=== PATIENT | female | born 1940 | race Hispanic/Latino ===

== ENCOUNTER → 2018-01-01 | Outpatient (CLI) | payer MEDICARE ==
[~2018-01-01] MED LIST: ADV250 IH; ALBU8.5H8 IH; ALPR1TAB2 PO; AMMO385C4 TP; ATOR40TA69 PO; ISOS20TA7 PO; LEVA1.2525 IH; LOSA25TA2 PO; METO10TA3 PO; MONT10TA24 PO; NITRS4 SL; OMEP40CA37 PO; RANO500T3 PO; SERT50TA12 PO; SITA100T12 PO; TERB250T51 PO; TIOT4MIS5 IH; TRAM50TA4 PO; TRAV2.5D OD; XUD IH
[2018-01-01 09:30] LABS: CREATININE 0.6 mg/dL (0.5-1.5)
== END | disposition home or self-care (01) ==
LOC: LAB 08:43
PROVIDERS: ATTEND Internal Medicine
DX: J98.4 Other disorders of lung (principal); R91.1 Solitary pulmonary nodule
CPT/HCPCS: 36415; 82565; 84520

== ENCOUNTER → 2018-01-02 | Outpatient (CLI) | payer MEDICARE ==
[~2018-01-02] MED LIST changes: +ISOVUE-370 50ML VIAL IV ONE
== END | disposition home or self-care (01) ==
LOC: RAH 12:08
PROVIDERS: ATTEND Internal Medicine
DX: J98.4 Other disorders of lung (principal)
CPT/HCPCS: 71260; Q9967

== ENCOUNTER 2018-05-19 18:28 | Emergency (ER) | payer MEDICARE ==
[~2018-05-19 18:28] MED LIST changes: -ISOVUE-370 50ML VIAL IV ONE
[2018-05-19 19:14] LABS: BASOPHILS % (AUTO) 0.3 % (0.0-5.0); HEMATOCRIT 42.8 % (36-48); LYMPHOCYTES % (AUTO) 35.1 % (21.0-51.0); MEAN CORPUSCULAR HEMOGLOBIN 29.3 pg (27.0-33.0); MEAN CORPUSCULAR HGB CONC 33.2 g/dL (32.0-36.0); MEAN CORPUSCULAR VOLUME 88.4 fL (79-99); MONOCYTES % (AUTO) 7.4 % (3.0-13.0); NEUTROPHILS % (AUTO) 55.2 % (40.0-77.0); NUCLEATED RED BLOOD CELLS 0.1 % (0.0-0.19); PLATELET COUNT (AUTO) 140 K/uL (130-400); RED BLOOD CELL COUNT(AUTO) 4.84 MIL/uL (4.00-5.50); RED CELL DISTRIBUTION WIDTH 14.7 % (11.0-15.5)
[2018-05-19 19:28] LABS: INR 0.95 (0.85-1.15); PARTIAL THROMBOPLASTIN TIME 23.8 SEC (26.3-35.5)
[2018-05-19 19:32] LABS: CREATININE 0.8 mg/dL (0.5-1.5); POTASSIUM 4.4 mmol/L (3.5-5.1)
[2018-05-19 19:40] LABS: APPEARANCE,URINE Clear (CLEAR); BILIRUBIN,URINE Negative (NEGATIVE); COLOR,URINE Yellow (YELLOW); GLUCOSE, URINE (UA) >=1000 mg/dL (NEGATIVE); KETONES,URINE Negative (NEGATIVE); LEUKOCYTE ESTERASE ,URINE Negative (NEGATIVE); NITRATE,URINE Negative (NEGATIVE); OCCULT BLOOD,URINE Negative (NEGATIVE); PH,URINE 5.5 (5.0-8.0); PROTEIN,URINE Negative (NEGATIVE); UROBILINOGEN,URINE 0.2 mg/dL (0.2-1.0)
[2018-05-19 20:04] LABS: BACTERIA,URINE None Seen /HPF (None Seen); RBC,URINE 0-1 /HPF (0-1); SQUAMOUS EPITHELIAL CELL,UR None Seen /HPF (0-2); WBC,URINE 0-1 /HPF (0-1)
[2018-05-19] MEDS ORDERED: METHYLPREDNISOLONE SOD SUCC 40MG/ML 1ML ONE (20:31)
[2018-05-19] MEDS ORDERED: SODIUM CHLORIDE 0.9% 1000ML 1,000 ML IV ONE (20:31)
[2018-05-19] MEDS ORDERED: LEVOFLOXACIN 500 MG/D5W 100 ML 100 ML ONE (20:31)
[2018-05-19] MEDS ORDERED: INSULIN HUMULIN R 100 UNIT/ML 3ML ONE (20:32)
[2018-05-19] MEDS ORDERED: IPRATROPIUM/ALBUTEROL SULFATE 3 ML SOLUTION IH ONE (20:39)
[2018-05-19] MEDS ORDERED: OSELTAMIVIR PHOSPHATE 75 MG CAP ONE (22:58)
== END 2018-05-19 23:10 | disposition home or self-care (01) ==
LOC: EDH 18:28
DX: J44.0 Chronic obstructive pulmonary disease with (acute) lower respiratory infection (principal); M54.89 Other dorsalgia; E11.65 Type 2 diabetes mellitus with hyperglycemia; I25.10 Atherosclerotic heart disease of native coronary artery without angina pectoris; Z72.0 Tobacco use
CPT/HCPCS: 36415; 71045; 80048; 81001; 82550; 82948; 84484; 85025; 85378; 85610; 85730; 93005; 94640; 96365; 96375; 99285; J1815; J1956; J2920; J7030

== ENCOUNTER 2019-05-22 20:14 | Emergency (ER) | payer MEDICARE ==
[~2019-05-22 20:14] MED LIST changes: +OMEP40CA13 PO; -OMEP40CA37 PO
[2019-05-22 20:59] LABS: BASOPHILS % (AUTO) 0.5 % (0.0-5.0); EOSINOPHILS % (AUTO) 0.4 % (0.0-8.0); LYMPHOCYTES % (AUTO) 10.7 % (21.0-51.0); MEAN CORPUSCULAR HEMOGLOBIN 26.5 pg (27.0-33.0); MEAN CORPUSCULAR HGB CONC 31.8 g/dL (32.0-36.0); MEAN CORPUSCULAR VOLUME 83.2 fL (79-99); MONOCYTES % (AUTO) 5.1 % (3.0-13.0); NEUTROPHILS % (AUTO) 83.3 % (40.0-77.0); PLATELET COUNT (AUTO) 167 K/uL (130-400); RED BLOOD CELL COUNT(AUTO) 5.05 MIL/uL (4.00-5.50); RED CELL DISTRIBUTION WIDTH 17.2 % (11.0-15.5); WHITE BLOOD COUNT (AUTO) 13.3 K/uL (4.8-10.8)
[2019-05-22 21:15] LABS: ALBUMIN 3.8 g/dL (3.5-5.0); BILIRUBIN,TOTAL 0.5 mg/dL (0.2-1.0); CREATININE 0.7 mg/dL (0.5-1.5); POTASSIUM 4.8 mmol/L (3.5-5.1)
[2019-05-22] MEDS ORDERED: FAMOTIDINE/PF 20 MG/2 ML VIAL IV ONE (21:30)
[2019-05-22] MEDS ORDERED: MAG HYDROX/AL HYDROX/SIMETH ES 30 ML SUSP UDCUP ONE (21:30)
[2019-05-22] MEDS ORDERED: LIDOCAINE HCL 2% VISCOUS 15 ML UDCUP ONE (21:30)
[2019-05-22] MEDS ORDERED: INSULIN HUMULIN R 100 UNIT/ML 3ML ONE (21:31)
[2019-05-22] MEDS ORDERED: IPRATROPIUM/ALBUTEROL SULFATE 3 ML SOLUTION IH ONE (21:41)
== END 2019-05-23 00:21 | disposition home or self-care (01) ==
LOC: EDH 20:14
DX: K29.00 Acute gastritis without bleeding (principal); E11.65 Type 2 diabetes mellitus with hyperglycemia; J44.9 Chronic obstructive pulmonary disease, unspecified; I25.10 Atherosclerotic heart disease of native coronary artery without angina pectoris; Z95.0 Presence of cardiac pacemaker
CPT/HCPCS: 36415; 80053; 82948; 85025; 93005; 94640; 96374; 96375; 99285; J1815; J3490